=== PATIENT | female | born 1960 | race African-American/Black ===

== ENCOUNTER 2016-09-10 22:02 | Inpatient (IN) | payer OTHER ==
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
[2016-09-10 22:50] VITALS: BMI 23.0
[2016-09-10] MEDS ORDERED: chlordiazePOXIDE HCL 25 MG CAPSULE PO PRN (22:50)
[2016-09-10] MEDS ORDERED: diphenhydrAMINE HCL 50 MG CAPSULE PO PRN (22:50)
[2016-09-10] MEDS ORDERED: P-EPHED 60MG/TRIPROLIDI 2.5MG TABLET PO PRN (22:50)
[2016-09-10] MEDS ORDERED: MAGNESIUM HYDROX 2400MG/30ML ORAL SUSPENSION 30 ML CUP PO PRN (22:50)
[2016-09-10] MEDS ORDERED: NICOTINE POLACRILEX 2 MG GUM BC PRN (22:50)
[2016-09-10] MEDS ORDERED: hydrOXYzine PAMOATE 50 MG CAPSULE (FP) PO PRN (22:50)
[2016-09-10] MEDS ORDERED: MENTHOL/PHENOL 1 EACH UD MM PRN (22:50)
[2016-09-10] MEDS ORDERED: guaiFENesin/D-METHORPHAN HB 10 ML UNIT-DOSE CUPS PO PRN (22:50)
[2016-09-10] MEDS ORDERED: MAG HYDROX/AL HYDROX/SIMETH 30 ML UNIT-DOSE CUP PO PRN (22:50)
[2016-09-10] MEDS ORDERED: MAGNESIUM CITRATE 300 ML BOTTLE PO PRN (22:50)
[2016-09-10] MEDS ORDERED: ACETAMINOPHEN 325 MG TABLET (FP) PO PRN (22:50)
[2016-09-10] MEDS ORDERED: IBUPROFEN 400 MG TABLET (FP) PO PRN (22:50)
[2016-09-10] MEDS ORDERED: LOPERAMIDE HCL 2 MG CAPSULE PO PRN (22:50)
[2016-09-10] MEDS: chlordiazePOXIDE HCL 25 MG CAPSULE PO SCH (23:50)
[2016-09-11] MEDS: chlordiazePOXIDE HCL 25 MG CAPSULE PO SCH ×4 (05:15→23:25)
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
[2016-09-11 10:19] LABS: MCH 30.9 pg (25.7-33.7); MCHC 33.1 g/dl (32.0-36.0); MEAN CELL VOLUME 93.3 fl (80-96); MEAN PLT VOLUME 8.1 fl (7.5-11.1); PLATELET COUNT 260 K/MM3 (134-434); RDW 13.8 % (11.6-15.6); WHITE BLOOD COUNT 6.9 K/mm3 (4.0-10.0)
--- NOTE | 2016-09-11 10:21 | PN ---
S CIWA - CIWA Score Nausea/Vomitin Muscle Tremors: 3 Anxiety: 3 Agitation: 3 Paroxysmal Sweats: 1-Minimal Palms Moist Orientation: 0-Oriented Tacttile Disturbances: 1-Very Mild Itch/Numbness Auditory Disturbances: 1-Very Mild Visual Disturbances: 1-Very Mild Sensitivity Headache: 2-Mild CIWA-Ar Total Score: 18 BHS Progress Note (SOAP) Subjective: ALERT,IRRITABLE,ANXIOUS,INTERRUPTED SLEEP,TREMOR Objective: 09/11/16 10:20 Vital Signs Temperature 97.9 F 09/11/16 06:00 Pulse Rate 73 09/11/16 06:00 Respiratory Rate 18 09/11/16 06:00 Blood Pressure 131/72 09/11/16 06:00 O2 Sat by Pulse Oximetry (%) EKG NSR,NORMAL ECG LABS PENDING Assessment: 09/11/16 10:20 WITHDRAWAL SYMPTOM Plan: CONTINUE DETOX
[2016-09-11 10:41] LABS: ALBUMIN 3.3 g/dl (3.4-5.0); ALK PHOS 57 U/L (45-117); ANION GAP 7 (8-16); BILIRUBIN,TOTAL 0.5 mg/dL (0.2-1.0); CALCIUM 8.7 mg/dL (8.5-10.1); CO2 28 mmol/L (21-32); CREATININE 0.8 mg/dL (0.55-1.02); GLUCOSE,RANDOM 92 mg/dL (74-106); SGOT/AST 21 U/L (15-37); SGPT/ALT 21 U/L (12-78)
[2016-09-11] MEDS: PRENATAL VITAMINS W/ FOLIC ACID TABLET (FP) PO SCH (11:22)
[2016-09-11] MEDS: DIVALPROEX SODIUM 250 MG TABLET E.C. (FP) PO SCH ×2 (11:22→22:19)
[2016-09-11] MEDS: BENZTROPINE MESYLATE 1 MG TABLET (FP) PO SCH ×2 (11:23→22:19)
[2016-09-11] MEDS: LITHIUM CARBONATE 300 MG CAPSULE (FP) PO SCH ×2 (11:24→22:19)
[2016-09-11] MEDS: NICOTINE 21 MG/24 HOURS TOPICAL PATCH TD SCH (11:26)
--- NOTE | 2016-09-11 14:23 | EKG ---
Test Reason : Blood Pressure : / mmHG Vent. Rate : 076 BPM Atrial Rate : 076 BPM P-R Int : 190 ms QRS Dur : 094 ms QT Int : 418 ms P-R-T Axes : 062 020 055 degrees QTc Int : 470 ms NORMAL SINUS RHYTHM NORMAL ECG NO PREVIOUS ECGS AVAILABLE Confirmed by CHON JEROME MD ([id number]) on 09/11/2016 2:22:52 PM Referred By: Aaron Arredondo Confirmed By:CHON JEROME MD
[2016-09-11] MEDS: THIAMINE HCL 100 MG TABLET (FP) PO SCH (22:20)
[2016-09-11] MEDS: QUEtiapine FUMARATE 400 MG TABLET PO SCH (22:47)
[2016-09-12] MEDS: chlordiazePOXIDE HCL 25 MG CAPSULE PO SCH ×3 (07:52→17:03)
--- NOTE | 2016-09-12 11:07 | PN ---
S CIWA - CIWA Score Nausea/Vomitin Muscle Tremors: 3 Anxiety: 3 Agitation: 2 Paroxysmal Sweats: 1-Minimal Palms Moist Orientation: 0-Oriented Tacttile Disturbances: 1-Very Mild Itch/Numbness Auditory Disturbances: 1-Very Mild Visual Disturbances: 1-Very Mild Sensitivity Headache: 2-Mild CIWA-Ar Total Score: 17 BHS Progress Note (SOAP) Subjective: ALERT,IRRITABLE,ANXIOUS,INTERRUPTED SLEEP,TREMOR Objective: 09/12/16 11:06 Vital Signs Temperature 97.3 F L 09/12/16 09:30 Pulse Rate 88 09/12/16 09:30 Respiratory Rate 20 09/12/16 09:30 Blood Pressure 111/73 09/12/16 09:30 O2 Sat by Pulse Oximetry (%) 09/12/16 11:06 Laboratory Last Values WBC 6.9 K/mm3 (4.0-10.0) D 09/11/16 07:00 RBC 4.33 M/mm3 (3.60-5.2) 09/11/16 07:00 Hgb 13.4 GM/dL (10.7-15.3) 09/11/16 07:00 Hct 40.4 % (32.4-45.2) 09/11/16 07:00 MCV 93.3 fl (80-96) 09/11/16 07:00 MCHC 33.1 g/dl (32.0-36.0) 09/11/16 07:00 RDW 13.8 % (11.6-15.6) 09/11/16 07:00 Plt Count 260 K/MM3 (134-434) D 09/11/16 07:00 MPV 8.1 fl (7.5-11.1) 09/11/16 07:00 Sodium 141 mmol/L (136-145) 09/11/16 07:00 Potassium 4.4 mmol/L (3.5-5.1) 09/11/16 07:00 Chloride 106 mmol/L (98-107) 09/11/16 07:00 Carbon Dioxide 28 mmol/L (21-32) 09/11/16 07:00 Anion Gap 7 (8-16) L 09/11/16 07:00 BUN 16 mg/dL (7-18) D 09/11/16 07:00 Creatinine 0.8 mg/dL (0.55-1.02) 09/11/16 07:00 Creat Clearance w eGFR > 60 (>60) 09/11/16 07:00 Random Glucose 92 mg/dL (74-106) 09/11/16 07:00 Calcium 8.7 mg/dL (8.5-10.1) 09/11/16 07:00 Total Bilirubin 0.5 mg/dL (0.2-1.0) D 09/11/16 07:00 AST 21 U/L (15-37) 09/11/16 07:00 ALT 21 U/L (12-78) D 09/11/16 07:00 Alkaline Phosphatase 57 U/L (45-117) D 09/11/16 07:00 Total Protein 6.0 g/dl (6.4-8.2) L 09/11/16 07:00 Albumin 3.3 g/dl (3.4-5.0) L 09/11/16 07:00 Valproic Acid 3.868 ug/ml (50-100) L 09/11/16 12:30 [place] 0.1 MEQ/L (0.6-1.2) L 09/11/16 12:30 RPR Titer Nonreactive (NONREACTIVE) 09/11/16 07:00 Hepatitis C Antibody <0.1 s/co ratio (0.0-0.9) 09/10/16 07:00 09/12/16 11:07 Assessment: 09/12/16 11:07 WITHDRAWAL SYMPTOM Plan: CONTINUE DETOX
[2016-09-12] MEDS: DIVALPROEX SODIUM 250 MG TABLET E.C. (FP) PO SCH ×2 (11:09→22:17)
[2016-09-12] MEDS: BENZTROPINE MESYLATE 1 MG TABLET (FP) PO SCH ×2 (11:09→22:17)
[2016-09-12] MEDS: LITHIUM CARBONATE 300 MG CAPSULE (FP) PO SCH ×2 (11:10→22:17)
[2016-09-12] MEDS: PRENATAL VITAMINS W/ FOLIC ACID TABLET (FP) PO SCH (11:10)
[2016-09-12] MEDS: NICOTINE 21 MG/24 HOURS TOPICAL PATCH TD SCH (11:11)
[2016-09-12] MEDS: THIAMINE HCL 100 MG TABLET (FP) PO SCH (22:17)
[2016-09-12] MEDS: QUEtiapine FUMARATE 400 MG TABLET PO SCH (22:17)
[2016-09-12] MEDS: chlordiazePOXIDE 5 MG CAPSULE PO SCH (22:24)
--- NOTE | 2016-09-13 09:26 | PN ---
S Progress Note (SOAP) Subjective: ALERT,IRRITABLE,ANXIOUS,INTERRUPTED SLEEP Objective: 09/13/16 09:25 Vital Signs Temperature 97.3 F L 09/13/16 06:06 Pulse Rate 78 09/13/16 06:06 Respiratory Rate 16 09/13/16 06:06 Blood Pressure 104/57 09/13/16 06:06 O2 Sat by Pulse Oximetry (%) Assessment: 09/13/16 09:26 WITHDRAWAL SYMPTOM Plan: CONTINUE DETOX,DISCHARGE IN AM
[2016-09-13] MEDS: BENZTROPINE MESYLATE 1 MG TABLET (FP) PO SCH ×2 (10:37→22:30)
[2016-09-13] MEDS: LITHIUM CARBONATE 300 MG CAPSULE (FP) PO SCH ×2 (10:37→22:30)
[2016-09-13] MEDS: DIVALPROEX SODIUM 250 MG TABLET E.C. (FP) PO SCH ×2 (10:37→22:30)
[2016-09-13] MEDS: PRENATAL VITAMINS W/ FOLIC ACID TABLET (FP) PO SCH (10:37)
[2016-09-13] MEDS: chlordiazePOXIDE 5 MG CAPSULE PO SCH ×3 (10:37→17:24)
[2016-09-13] MEDS: NICOTINE 21 MG/24 HOURS TOPICAL PATCH TD SCH (10:38)
[2016-09-13 13:09] LABS: URINE APPEARANCE CLEAR; URINE BILIRUBIN NEGATIVE (NEGATIVE); URINE COLOR LTYELLOW; URINE GLUCOSE (UA) NEGATIVE (NEGATIVE); URINE KETONE NEGATIVE (NEGATIVE); URINE NITRITE NEGATIVE (NEGATIVE); URINE PROTEIN NEGATIVE (NEGATIVE); URINE UROBILINOGEN NEGATIVE E.U./dl (0.2-1.0)
[2016-09-13 13:53] LABS: URINE BLOOD 1+ (NEGATIVE); URINE LEUK ESTERASE TRACE (NEGATIVE)
[2016-09-13 13:58] LABS: URINE HYALINE CAST 1 /lpf; URINE MUCUS RARE; URINE RBC <1 /hpf (0-3); URINE WBC 5 /hpf (3-5)
[2016-09-13 22:13] VITALS: TEMP 97.7
[2016-09-13] MEDS: THIAMINE HCL 100 MG TABLET (FP) PO SCH (22:30)
[2016-09-13] MEDS: QUEtiapine FUMARATE 400 MG TABLET PO SCH (22:30)
[2016-09-13] MEDS: chlordiazePOXIDE HCL 10 MG CAPSULE PO SCH (22:37)
[2016-09-14 06:19] VITALS: BP 115/60; PULSE 86
[2016-09-14] MEDS: chlordiazePOXIDE HCL 10 MG CAPSULE PO SCH (06:22)
--- NOTE | 2016-09-14 08:13 | PN ---
S Progress Note (SOAP) Subjective: ALERT,NO COMPLAINT Objective: 09/14/16 08:12 Vital Signs Temperature 97.7 F 09/14/16 06:00 Pulse Rate 86 09/14/16 06:00 Respiratory Rate 18 09/14/16 06:00 Blood Pressure 115/60 09/14/16 06:00 O2 Sat by Pulse Oximetry (%) Assessment: 09/14/16 08:12 DETOX COMPLETED,NO WITHDRAWAL SYMPTOM Plan: DISCHARGE TODAY,FOLLOW UP WITH AFTER CARE PROGRAM ARRANGEMENT
--- NOTE | 2016-09-14 08:18 | DS ---
[facility] Detox Discharge Summary Admission Date: 09/10/16 Discharge Date: 09/21/16 - History Present History: Alcohol Dependence, Cocaine Dependence Additional Comments: FOLLOW UP WITH AFTER [facility] PROGRAM ARRANGEMENT Pertinent Past History: GERD HYPERLIPIDEMIA NICOTINE DEPENDENCE - Physical Exam Results Vital Signs: Vital Signs Temperature 97.7 F 09/14/16 06:00 Pulse Rate 86 09/14/16 06:00 Respiratory Rate 18 09/14/16 06:00 Blood Pressure 115/60 09/14/16 06:00 O2 Sat by Pulse Oximetry (%) Pertinent Admission Physical Exam Findings: WITHDRAWAL SYMPTOM - Treatment Hospital Course: Detox Protocol Followed, Detoxed Safely, Responded well, Discharged Condition Good, Rehab Referral Accepted Patient has Accepted a Rehab Referral to: [facility] - Medication Discharge Medications: Ambulatory Orders Divalproex [Depakote] 500 mg PO BID 07/27/11 Benztropine Mesylate [Cogentin -] 1 mg PO BID #60 tablet 12/07/14 [place] Carbonate [Eskalith -] 600 mg PO BID #60 capsule 12/07/14 Quetiapine Fumarate [Seroquel -] 400 mg PO HS #30 tablet 12/07/14 Benztropine Mesylate [Cogentin -] 1 mg PO BID #60 tablet 09/11/16 Divalproex [Depakote -] 250 mg PO BID #60 tab 09/11/16 [place] Carbonate [Eskalith -] 300 mg PO BID #60 cap 09/11/16 Quetiapine Fumarate [Seroquel -] 400 mg PO HS #30 tab 09/11/16 - Diagnosis (1) Alcohol dependence with uncomplicated withdrawal Current Visit: Yes Status: Chronic (2) Cocaine dependence, uncomplicated Current Visit: Yes Status: Chronic (3) GERD (gastroesophageal reflux disease) Current Visit: Yes Status: Chronic Qualifiers: Esophagitis presence: esophagitis presence not specified Qualified Code(s): K21.9 - Gastro-esophageal reflux disease without esophagitis (4) HLD (hyperlipidemia) Current Visit: Yes Status: Chronic Qualifiers: Hyperlipidemia type: pure hypercholesterolemia Qualified Code(s): E78.00 - Pure hypercholesterolemia, unspecified; E78.0 - Pure hypercholesterolemia (5) Nicotine dependence Current Visit: Yes Status: Chronic Qualifiers: Nicotine product type: cigarettes Substance use status: uncomplicated Qualified Code(s): F17.210 - Nicotine dependence, cigarettes, uncomplicated (6) Syncope Current Visit: No Status: Active (7) Weight decreased Current Visit: No Status: Active - AMA Did Patient Leave Against Medical Advice: No
[2016-09-14] MEDS: LITHIUM CARBONATE 300 MG CAPSULE (FP) PO SCH (09:11)
[2016-09-14] MEDS: DIVALPROEX SODIUM 250 MG TABLET E.C. (FP) PO SCH (09:11)
[2016-09-14] MEDS: PRENATAL VITAMINS W/ FOLIC ACID TABLET (FP) PO SCH (09:11)
[2016-09-14] MEDS: BENZTROPINE MESYLATE 1 MG TABLET (FP) PO SCH (09:11)
== END 2016-09-14 09:16 | disposition home or self-care (01) | DRG 774 ==
LOC: YASAS 22:02 → Y6N 22:33
PROVIDERS: ADMIT Internal Medicine; ATTEND Internal Medicine
PROC: HZ2ZZZZ Detoxification Services for Substance Abuse Treatment (ICD-10-PCS; principal; 2016-09-10)
DX: F10.230 Alcohol dependence with withdrawal, uncomplicated (principal); F14.20 Cocaine dependence, uncomplicated; F17.210 Nicotine dependence, cigarettes, uncomplicated; F20.0 Paranoid schizophrenia; F31.5 Bipolar disorder, current episode depressed, severe, with psychotic features; K21.9 Gastro-esophageal reflux disease without esophagitis; E78.5 Hyperlipidemia, unspecified; Z86.79 Personal history of other diseases of the circulatory system; Z87.898 Personal history of other specified conditions; Z91.5 Personal history of self-harm
CPT/HCPCS: 36415; 71020-TC; 80053; 80164; 80178; 81003; 81015; 85027; 86593; 86803; 93005; 93010